=== PATIENT | female | born 1960 | race African-American/Black ===

== ENCOUNTER 2022-08-21 23:23 | Emergency (ER) | payer SELFPAY | END 2022-08-22 00:56 | disposition home or self-care (01) | LOC: CSHERS 23:23 | DX: I10 Essential (primary) hypertension (principal) | CPT/HCPCS: 99283 ==

== ENCOUNTER 2025-02-13 19:23 | Emergency (ER) | payer SELFPAY | END 2025-02-13 20:19 | disposition home or self-care (01) | LOC: CSHERS 19:23 | DX: J01.10 Acute frontal sinusitis, unspecified (principal); I10 Essential (primary) hypertension; Z79.899 Other long term (current) drug therapy | CPT/HCPCS: 99283 ==